=== PATIENT | male | born 1990 | race Caucasian/White ===

== ENCOUNTER 2023-07-17 14:18 | Emergency (ER) | payer SELFPAY ==
[~2023-07-17] VITALS: Ht 182.8 cm; Wt 83.9 kg
== END 2023-07-17 15:44 | disposition home or self-care (01) ==
LOC: ED 14:18
DX: T63.441A Toxic effect of venom of bees, accidental (unintentional), initial encounter (principal); Y92.89 Other specified places as the place of occurrence of the external cause